=== PATIENT | female | born 1980 | race American Indian/Alaskan Native ===

== ENCOUNTER 2018-12-18 10:28 | Emergency (ER) | payer MEDICAID ==
[2018-12-18 10:37] VITALS: BMI 28.3
--- NOTE | 2018-12-18 14:08 | MRI ---
MRI right elbow HISTORY: Elbow pain. Injury. Evaluate for biceps tendon injury. COMPARISON: None available. TECHNIQUE: Multi-echo multiplanar sequences were performed through the right elbow without the use of intravenous contrast. FINDINGS: Mild insertional tendinopathy of the biceps tendon at its insertion on the radial tuberosity. Brachialis tendon insertion appears preserved. Increased signal seen within the distal attachment of the triceps tendon on the posterior olecranon suggestive for a moderate tendinopathy with some mild partial interstitial tearing and/or interstitial delamination. Clinical correlation. Increased signal within the ulnar nerve as it traverses the cubital tunnel which may represent a mild ulnar neuropathy. Clinical correlation. Visualized osseous structures appear grossly preserved. Reticulation and edema within the medial soft tissues. Adjacent increased signal seen within the proximal attachment of the common flexor tendon which may represent a mild to moderate medial epicondylitis. Adjacent increased signal within the proximal attachment of the ulnar collateral ligament which may represent a low to moderate grade strain. Common extensor tendon appears preserved. Radial collateral ligament appears preserved. Mild increased signal seen within the proximal attachment of the lateral ulnar collateral ligament which may represent a low grade sprain. Trace fluid in the elbow joint space. Impression: 1. Mild insertional tendinopathy of the biceps tendon at its insertion on the radial tuberosity. 2. Increased signal seen within the distal attachment of the triceps tendon on the posterior olecranon suggestive for a moderate tendinopathy with some mild partial interstitial tearing and/or interstitial delamination. Clinical correlation. 3. Increased signal within the ulnar nerve as it traverses the cubital tunnel which may represent a mild ulnar neuropathy. Clinical correlation. 4. Reticulation and edema within the medial soft tissues. Adjacent increased signal seen within the proximal attachment of the common flexor tendon which may represent a mild to moderate medial epicondylitis. Adjacent increased signal within the proximal attachment of the ulnar collateral ligament which may represent a low to moderate grade strain. 5. Mild increased signal seen within the proximal attachment of the lateral ulnar collateral ligament which may represent a low grade sprain. 6. Trace fluid in the elbow joint space.
[2018-12-18 14:32] VITALS: BP 117/80; PULSE 88; RESP 18; TEMP 98; O2SAT 98
--- NOTE | 2018-12-18 15:36 | C.PDOC ---
History Of Present Illness 38 y/o female presents to the ER for evaluation of bruising to the right upper arm which has been present for the past 5-6 days. Patient states that she was lifting something heavy about 6 days ago. Patient reports that she noticed bruising to the right upper arm in the morning the next day.Denies having trauma, pain in shoulder, CP, and SOB. Chief Complaint (Nursing): Upper Extremity Problem/Injury History Per: Patient History/Exam Limitations: no limitations Onset/Duration Of Symptoms: Days Current Symptoms Are (Timing): Still Present Severity: Moderate Past Medical History Reviewed: Historical Data, Nursing Documentation, Vital Signs Vital Signs: Last Vital Signs Temp 98 F 12/18/18 14:27 Pulse 88 12/18/18 14:27 Resp 18 12/18/18 14:27 BP 117/80 12/18/18 14:27 Pulse Ox 98 12/18/18 14:27 - Medical History PMH: Asthma Surgical History: Family History: States: No Known Family Hx - Social History Hx Alcohol Use: Yes Hx Substance Use: Yes - Immunization History Hx Tetanus Toxoid Vaccination: No Hx Influenza Vaccination: No Hx Pneumococcal Vaccination: No Review Of Systems Except As Marked, All Systems Reviewed And Found Negative. Constitutional: Negative for: Fever, Chills Cardiovascular: Negative for: Chest Pain Respiratory: Negative for: Shortness of Breath Skin: Positive for: Bruising (right upper arm) Physical Exam - Physical Exam Appears: Non-toxic, No Acute Distress Skin: Normal Color, Warm, Dry, Ecchymosis (ecchymosis to right upper extremity) Head: Atraumatic, Normacephalic Eye(s): bilateral: Normal Inspection Nose: Normal Oral Mucosa: Moist Neck: Supple Cardiovascular: Rhythm Regular Respiratory: Normal Breath Sounds, No Rales, No Rhonchi, No Wheezing Extremity: Normal ROM, Tenderness (tenderness to right upper extremity) Neurological/Psych: Oriented x3, Normal Speech ED Course And Treatment O2 Sat by Pulse Oximetry: 98 (RA) Pulse Ox Interpretation: Normal - Other Rad MRI X-Ray: Viewed By Me, Read By Radiologist Interpretation: MRI right elbow. HISTORY: Elbow pain. Injury. Evaluate for biceps tendon injury. COMPARISON: None available. TECHNIQUE: Multi-echo multiplanar sequences were performed through the right elbow without the use of intravenous contrast. FINDINGS: Mild insertional tendinopathy of the biceps tendon at its insertion on the radial tuberosity. Brachialis tendon insertion appears preserved. Increased signal seen within the distal attachment of the triceps tendon on the posterior olecranon suggestive for a moderate tendinopathy with some mild partial interstitial tearing and/or interstitial delamination. Clinical correlation. Increased signal within the ulnar nerve as it traverses the cubital tunnel which may represent a mild ulnar neuropathy. Clinical correlation. Visualized osseous structures appear grossly preserved. Reticulation and edema within the medial soft tissues. Adjacent increased signal seen within the proximal attachment of the common flexor tendon which may represent a mild to moderate medial epicondylitis. Adjacent increased signal within the proximal attachment of the ulnar collateral ligament which may represent a low to moderate grade strain. Common extensor tendon appears preserved. Radial collateral ligament appears preserved. Mild increased signal seen within the proximal attachment of the lateral ulnar collateral ligament which may represent a low grade sprain. Trace fluid in the elbow joint space. Impression: 1. Mild insertional tendinopathy of the biceps tendon at its insertion on the radial tuberosity. 2. Increased signal seen within the distal attachment of the triceps tendon on the posterior olecranon suggestive for a moderate tendinopathy with some mild partial interstitial tearing and/or interstitial delamination. Clinical correlation. 3. Increased signal within the ulnar nerve as it traverses the cubital tunnel which may represent a mild ulnar neuropathy. Clinical correlation. 4. Reticulation and edema within the medial soft tissues. Adjacent increased signal seen within the proximal attachment of the common flexor tendon which may represent a mild to moderate medial epicondylitis. Adjacent increased signal within the proximal attachment of the ulnar collateral ligament which may represent a low to moderate grade strain. 5. Mild increased signal seen within the proximal attachment of the lateral ulnar collateral ligament which may represent a low grade sprain. 6. Trace fluid in the elbow joint space. Medical Decision Making Medical Decision Making: Plan: --MRI-RUE Disposition - Disposition Referrals: [facility] [Outside] [facility] [Outside] Rodney Rodriguez III, MD [Staff Provider] - Disposition: HOME/ ROUTINE Disposition Time: 14:00 Condition: GOOD Additional Instructions: BARB THOMPSON, thank you for letting us take care of you today. The emergency medical care you received today was directed at your acute symptoms. If you were prescribed any medication, please fill it and take as directed. It may take several days for your symptoms to resolve. Return to the Emergency Department if your symptoms worsen, do not improve, or if you have any other problems. Please contact your doctor or call one of the physicians/clinics you have been referred to that are listed on the Patient Visit Information form that is included in your discharge packet. Bring any paperwork you were given at discharge with you along with any medications you are taking to your follow up visit. Our treatment cannot replace ongoing medical care by a primary care provider outside of the emergency department. Thank you for allowing the [facility] team to be part of your care today. Follow up with the orthopedic doctor or your primary care doctor this week for re-evaluation and further management. Prescriptions: Acetaminophen [Tylenol Extra Strength] 500 mg PO Q4 PRN #30 tablet PRN Reason: Pain, Moderate (4-7) Instructions: Biceps Tendinopathy Forms: [employer] (Lithuanian) - Clinical Impression Clinical Impression: Biceps tendonitis - Scribe Statement The provider has reviewed the documentation as recorded by the Yaakov Ponce Provider Attestation: All medical record entries made by the Kikaibdebi were at my direction and personally dictated by me. I have reviewed the chart and agree that the record accurately reflects my personal performance of the history, physical exam, medical decision making, and the department course for this patient. I have also personally directed, reviewed, and agree with the discharge instructions and disposition.
== END 2018-12-18 14:32 | disposition home or self-care (01) ==
LOC: C.ER 10:28
DX: M75.21 Bicipital tendinitis, right shoulder (principal)